=== PATIENT | male | born 1985 | race Two or more races ===

== ENCOUNTER 2021-03-18 10:26 | Outpatient (REF) | payer OTHER, SELFPAY ==
[2021-03-18 11:32] LABS: MANUAL DIFF FLAG NO
[2021-03-18 11:52] LABS: Basophils Absolute Auto 0.1 X10*3/uL (0.0-0.2); Basophils Percent Auto 0.8 % (0-2); Eosinophils Absolute Auto 0.1 X10*3/uL (0.0-0.4); Eosinophils Percent Auto 1.1 % (0-4); Hematocrit 46.5 % (42-52); Hemoglobin 15.8 g/dl (14.0-18.0); Imm Gran Abs Auto 0.06 X10*3/uL (0.00-0.03); Imm Gran Pct Auto 0.6 % (0.0-0.4); Lymphocytes Percent Auto 32.3 % (20-40); Mean Corpuscular Hemoglobin 29.2 pg (27.0-33.0); Mean Platelet Volume 9.9 fL (9.4-12.4); Monocytes Percent Auto 10.5 % (2-11); Neutrophils Absolute Auto 5.1 X10*3/uL (2.0-8.3); Neutrophils Percent Auto 54.7 % (45-73); Platelet Count 467 X10*3/uL (160-400); Red Blood Count 5.41 X10*6/uL (4.60-5.80); Red Cell Distribution Width 13.1 % (11.0-16.0); White Blood Count 9.3 X10*3/uL (4.8-10.8)
[2021-03-18 12:15] LABS: Alanine Aminotransferase 39 U/L (0-40); Albumin Level 4.3 g/dL (3.5-5.0); Alkaline Phosphatase 92 U/L (39-117); Anion Gap 14 (12-20); Aspartate Amino Transferase 24 U/L (5-37); Bilirubin Total 0.3 mg/dL (0.0-1.0); Blood Urea Nitrogen 11 mg/dL (9-16); Calcium 9.1 mg/dL (8.4-10.2); Carbon Dioxide 24 mmol/L (22-29); Chloride 107 mmol/L (96-108); Cholesterol 167 mg/dL; Estimated Glomerular Filt Rate > 60; Glucose Fasting 90 mg/dL (60-99); HDL Cholesterol 35 mg/dL; LDL Cholesterol Calculated 105 mg/dl; Potassium 4.6 mmol/L (3.3-5.1); Sodium 140 mmol/L (135-145); Triglycerides 136 mg/dL
[2021-03-18 12:37] LABS: TSH reflex Free T4 0.31 uIU/mL (0.32-4.0)
[2021-03-18 13:10] LABS: Free T4 (Free Thyroxine) 1.07 ng/dL (0.71-1.85)
[2021-03-20 07:27] LABS: SARS COV2 IgG Negative (Negative)
== END 2021-03-18 10:27 | disposition home or self-care (01) ==
LOC: HO.HMGCLDS 10:26
PROVIDERS: PCP Internal Medicine; Visit Provider Internal Medicine
DX: Z00.00 Encounter for general adult medical examination without abnormal findings (principal); Z20.822 Contact with and (suspected) exposure to COVID-19; R51.9 Headache, unspecified; Z82.49 Family history of ischemic heart disease and other diseases of the circulatory system; Z84.89 Family history of other specified conditions; Z87.898 Personal history of other specified conditions
CPT/HCPCS: 36415; 80053; 80061; 84439; 84443; 85025; 86769

== ENCOUNTER 2021-04-08 09:03 | Outpatient (REF) | payer OTHER, SELFPAY ==
--- NOTE | ~2021-04-08 | CT_ITS ---
EXAMINATION: CT HEAD WITHOUT CONTRAST CLINICAL INFORMATION: Syncope. Family history of brain tumor. COMPARISON: None TECHNIQUE: Contiguous axial imaging was performed from the skull base to vertex without intravenous administration of contrast. This CT examination was performed using dose optimization techniques as appropriate, variously including the following: *Automated exposure control *Adjustment of mA and/or kV according to patient size (this includes techniques or standardized protocols for targeted exams where dose is matched to indication/reason for exam; i.e. extremities or head) *Use of iterative reconstruction technique DLP: 682 mGy-cm FINDINGS: There is no evidence of acute intracranial hemorrhage or territorial infarction. No abnormal mass effect or midline shift is seen. [id number] matter differentiation is well preserved. No extra-axial fluid collections are identified. The ventricles are normal in size. There is no abnormal attenuation within the brain parenchyma. The osseous structures and soft tissues are normal. The mastoid air cells and visualized portions of the paranasal sinuses are well aerated. CT/CT head/brain wo con IMPRESSION: No acute intracranial process seen.
== END 2021-04-08 09:04 | disposition home or self-care (01) ==
LOC: HO.CT 09:03
PROVIDERS: Visit Provider Internal Medicine
DX: R51.9 Headache, unspecified (principal); Z84.89 Family history of other specified conditions; Z87.898 Personal history of other specified conditions
CPT/HCPCS: 70450

== ENCOUNTER → 2021-04-20 08:36 | Outpatient (BNVA) | payer OTHER, SELFPAY | PROVIDERS: PCP Internal Medicine; Referring Provider Internal Medicine; Visit Provider Internal Medicine | DX: R07.2 Precordial pain (principal); Z82.49 Family history of ischemic heart disease and other diseases of the circulatory system | CPT/HCPCS: 99202 ==

== ENCOUNTER → 2021-05-18 10:03 | Outpatient (BNVA) | payer OTHER, SELFPAY | PROVIDERS: PCP Internal Medicine; Referring Provider Internal Medicine; Visit Provider Surgery | DX: R22.42 Localized swelling, mass and lump, left lower limb (principal) | CPT/HCPCS: 99202 ==

== ENCOUNTER → 2021-05-27 09:32 | Outpatient (REF) | payer OTHER, SELFPAY ==
--- NOTE | 2021-05-27 09:35 | CA_ITS ---
Transthoracic Echocardiogram Patient (Last, First, Middle): Chiki Black David Gender: Male Date of : 1985 Age: 35 Procedure Date: 05/27/2021 Procedure Type: Transthoracic Echocardiogram Location: OP Height: 177.8 cm Weight: 97.52 kg BSA: 2.15 m2 Heart Rate: bpm BP: 110 / 75 mmHg Meat Counter Worker: JEFFERY Referring MD: Armando Camargo MD Symptoms: R07.2 - Precordial pain Conclusions: - Normal left ventricular size, thickness, systolic function, and wall motion. - Normal right ventricular cavity size and systolic function. - No valvular or pericardial pathology. Findings Left Ventricle Normal left ventricular size, thickness, systolic function, and wall motion. The visually estimated ejection fraction is between 55-60%. Diastolic function is normal for age. Right Ventricle Normal right ventricular cavity size and systolic function. Atria Both atria are normal in size. Aortic Valve Normal aortic valve structure and function. There is no aortic valve stenosis. There is no aortic valve regurgitation. Mitral Valve Normal mitral valve structure and function. There is no mitral valve regurgitation. There is no mitral valve stenosis. Pulmonic Valve Normal pulmonic valve structure and function. There is trace pulmonic valve regurgitation. Tricuspid Valve Normal tricuspid valve structure and function. There is trace tricuspid valve regurgitation. Normal right atrial pressure. There is no evidence of pulmonary hypertension. Great Vessels All visible segments of the aorta are normal in size. The visualized portions of the pulmonary artery and branches are normal. Venous The inferior vena cava is normal in size and collapses greater than 50% with inspiration. Pericardium/Pleural There is no evidence of pericardial effusion. Prior Study Comparison No prior study available for comparison. Measurements 2D Linear Measurements IVSd: 0.72 0.6-0.9/0.6-1.0 cm LVIDd: 5.20 3.9-5.3/4.2-5.9 cm LVIDd Index: 2.42 2.4-3.2/2.2-3.1 cm/m2 LVIDs: 3.48 2.0-3.6 cm LVPWd: 0.85 0.7-1.1 cm Ao Root: 2.90 2.1-3.5 cm LA Diam: 3.40 2.7-3.8/3.0-4.0 cm LAIDs Index: 1.58 1.5-2.3 cm/m2 LV Mass: 176.47 67-162/88-224 g LV Mass Index: 82.08 43-95/49-115 g/m2 LVOT Diam: 2.20 3.0+(-)1.3 cm 2D Systolic Function EF 4C: 67.80 >55% EF 2C: 56.00 >55% EF BiP: 61.60 >55% Mitral Valve MV Pk E: 0.69 MV PK A: 0.49 MV Decel Time: 126.00 E/A: 1.40 E'Lateral: 10.40 E'Medial: 9.79 E/E' Med: 7.00 E/E' Lat: 6.60 PHT: 37.00 MVA PHT: 5.95 Decel [place]: 5.46 Aortic Valve AoV Pk Eduardo: 1.30 AoV Pk Grad: 7.00 LVOT LVOT Pk Eduardo: 0.99 LVOT Mn Eduardo: 0.58 LVOT VTI: 0.19 LVOT Pk Grad: 4.00 LVOT Mn Grad: 2.00 LVOT Diam: 2.20 LVOT Area: 3.80 Diastolic Function MV Pk E: 0.69 MV Pk A: 0.49 E/A: 1.40 E'Medial: 9.79 E/E' Med: 7.00 E' Laterial: 10.40 E/E' Lat: 6.60 Right Ventricle TAPSE (mm): 2.13 Tricuspid Valve TR Pk Eduardo: 2.19 TR Pk Grad: 19.00 RA Press: 3.00 RVSP: 22.00 Great Vessels Aorta Ao Root-2D: 2.90 2.0-3.7 cm Ao Asc: 2.60 2.1-3.4 cm Updated in Other Vendor System with Status of Final Paras Vasquez MD electronically signed on 05/29/2021 11:34:56 PM with status of Final
== END ==
LOC: HO.CARD 09:32
PROVIDERS: PCP Internal Medicine; Visit Provider Internal Medicine
DX: R07.2 Precordial pain (principal)
CPT/HCPCS: 93306

== ENCOUNTER → 2021-06-01 08:33 | Outpatient (BNVA) | payer OTHER, SELFPAY | PROVIDERS: PCP Internal Medicine; Referring Provider Internal Medicine; Visit Provider Internal Medicine | DX: Z01.810 Encounter for preprocedural cardiovascular examination (principal); R07.2 Precordial pain; Z82.49 Family history of ischemic heart disease and other diseases of the circulatory system | CPT/HCPCS: 99212 ==

== ENCOUNTER 2021-06-03 08:12 | Day surgery (SDC) | payer OTHER, SELFPAY ==
[2021-05-26 14:45] VITALS: BMI 30.3
--- NOTE | 2021-05-31 09:01 | HO.ANESPROP2 ---
Documented by User: Lillie Stevens 05/31/21 09:05 HPI - Anesthesia Eval Consult details Narrative: 35yo M for Left Excision of Multiple Subcutaneous Thigh Nodules Had recent cardiac w/u d/t strong family hx of early heart disease. EKG, Echo, and CT calcium scoring negative. Pt has f/u and preop clearance cardiac visit 06/01/21 [facility] Active Problems Active Problems: All Active Problems (Updated 05/26/21 @ 14:44 by Vera Mcknight) Precordial chest pain (Acute) Subcutaneous nodules (Acute) Nodular lesion on surface of skin (Acute) Intermittent left-sided chest pain (Acute) Hx of syncope (Acute) Family history of brain tumor (Acute) Headache (Acute) Family history of early CAD (Acute) Past Medical History Medical History (Updated 06/01/21 @ 08:54 by Armando Camargo MD) Family history of brain tumor Family history of early CAD Headache Hx of syncope Intermittent left-sided chest pain Subcutaneous nodules Family History Family History Father History of brain tumor Hx of heart disorder Brother No problems noted. Brother History of brain tumor Surgical History Surgical History No pertinent past surgical history Social History Social History Alcohol intake: current Alcohol intake frequency: holidays/special occasions only Patient Tobacco Use Status: Never used Tobacco Use of substances other than those prescribed or required for medical reasons: Yes Substance Use Type: Marijuana Substance Use Frequency: Occasionally Have you been hit, kicked, punched, or otherwise hurt by someone within the past year? If so, by whom?: No Are you DNR?: No Advance Directives: No Advance Directives Information Provided: No Advance Directives on File: No Recently lost weight without trying: No Eating poorly because of decreased appetite: No Poor oral hygiene: No Meds Allergies Allergy/AdvReac Type Severity Reaction Status Date / Time No Known Allergies Allergy Verified 06/01/21 08:41 Home Medications Medication Instructions Recorded Confirmed Last Taken Type No Known Home Meds 03/18/21 06/01/21 Unknown History Exam Exam Date and Time: May 31, 2021 0901 Height,Weight and Vital Signs: Height 5 ft 10 in Weight 96 kg Pertinent Lab Results Pertinent Lab Results: Laboratory Tests 03/18/21 03/18/21 10:34 10:34 WBC 9.3 Hgb 15.8 Hct 46.5 Plt Count 467 H Sodium 140 Potassium 4.6 Chloride 107 Carbon Dioxide 24 BUN 11 Creatinine 0.85 Narrative Narrative: EKG 03/22/2021 Sinus bradycardia, 58/min; inverted T-waves in leads 3 and AVF which seem nonspecific but otherwise normal CA/ QTc. ECHO 05/2021 Conclusions: - Normal left ventricular size, thickness, systolic function, and wall motion. ? - Normal right ventricular cavity size and systolic function.? ? - No valvular or pericardial pathology.? ?? Assessment and Plan Assessment Anesthesia Assessment: Chart Reviewed Documented by User: Lizett Segura 06/03/21 08:31 [facility] Past Medical History Medical History (Updated 06/01/21 @ 08:54 by Armando Camargo MD) Family history of brain tumor Family history of early CAD Headache Hx of syncope Intermittent left-sided chest pain Subcutaneous nodules Family History Family History Father History of brain tumor Hx of heart disorder Brother No problems noted. Brother History of brain tumor Surgical History Surgical History No pertinent past surgical history Social History Social History Alcohol intake: current Alcohol intake frequency: holidays/special occasions only Patient Tobacco Use Status: Never used Tobacco Use of substances other than those prescribed or required for medical reasons: Yes Substance Use Type: Marijuana Substance Use Frequency: Occasionally Have you been hit, kicked, punched, or otherwise hurt by someone within the past year? If so, by whom?: No Are you DNR?: No Advance Directives: No Advance Directives Information Provided: No Advance Directives on File: No Recently lost weight without trying: No Eating poorly because of decreased appetite: No Poor oral hygiene: No Meds Allergies Allergy/AdvReac Type Severity Reaction Status Date / Time No Known Allergies Allergy Verified 06/01/21 08:41 Home Medications Medication Instructions Recorded Confirmed Last Taken Type No Known Home Meds 03/18/21 06/01/21 Unknown History Exam Airway Mallampati Class: II TM Dist: >3cm Neck ROM: Full
[2021-06-03] VITALS (9 sets, daily range): BP systolic 96–134; BP diastolic 65–89; PULSE 50–70; RESP 14–20; TEMP 36.3–36.5; O2SAT 96–98
[2021-06-03] MEDS: Lactated Ringers 1,000 ML 100 ML IVCONT (08:55)
--- NOTE | 2021-06-03 09:30 | MHC.SHP ---
Pre-Procedural Eval Section A Date of Service: 06/03/21 Section B Chief Complaint: Subcutaneous nodules Allergies: Allergies Allergy/AdvReac Type Severity Reaction Status Date / Time No Known Allergies Allergy Verified 06/01/21 08:41 Plan I have reviewed the history and physical and performed a pertinent physical examination on my patient. No changes have occurred unless specified.
--- NOTE | 2021-06-03 10:21 | P.OP_ITS ---
Operative Note Operative Note Date of Service: 06/03/21 Narrative: Preop diagnosis: Multiple lipomas on the left thigh, x4 Postop diagnosis: Multiple lipomas on the left thigh, x4 Procedure: Excision of lipomas x4 on the left thigh Surgeon: Carlos Linda MD dietary assistant: OMKAR Umanzor The patient is a 55-year-old male with lipomas on the left thigh x4. He wanted this removed. He understood the technique of excision which she wanted done under some anesthesia. He was aware of the risks, benefits, and alternatives. He was brought to the operating room. He was placed in decubitus position in preparation for excision of 1 lipoma on the posterior thigh. This area was prepped and draped. Surgical time-out was done. Lidocaine 1% was used for local anesthesia. I made an incision on the skin overlying this lipoma on the posterior thigh using blade 15. This was carried down through the full-thickness skin and subcutaneous fat anterior lipoma was visualized. I sharply dissected the lipoma off the rest of the subcutaneous layer until this was delivered and sent as specimen. This lipoma measured about 4.5 by 2.2 cm. The incision was closed with full-thickness nylon 3-0 interrupted sutures. The area was infiltrated with Marcaine 0.5% for postop analgesia. Dressings were applied. The patient was then turned supine. There were 3 lipomas on the anterior thigh and medial thigh. This area was prepped and draped. Lidocaine 1% was used for local anesthesia. I made an incision in the skin overlying the lipoma on the medial thigh using blade 15. And this was carried down through the full- thickness skin and subcutaneous fat until I visualized these lipoma. I sharply dissected the lipoma off of the rest of the subcutaneous layer until this was delivered and sent as specimen. This lipomas about 3 cm in diameter. This incision was closed with full-thickness nylon 3-0 interrupted sutures. Dressings were applied There were 2 lipomas on the anterior thigh both about 2.5 cm in size. After infiltration of the skin, the incisions were made using blade 15. I sharply dissected lipoma off of the surrounding subcutaneous layer and these were both delivered and sent as specimen. I closed these 2 remaining incisions with nylon 3-0 interrupted sutures. Dressings were applied All incisions were infiltrated with Marcaine 0.5% for postop analgesia. The procedure was then completed. The patient tolerated the procedure well. There were no complication noted. Initial and final counts of sponges and instruments were correct. Estimated blood loss was minimal. Tthe patient was then transferred to the recovery room with stable vital signs.
--- NOTE | 2021-06-03 10:26 | PM.OP ---
Brief Operative Note Date of Service: 06/03/21 Pre-op diagnosis: Lipomas x4, left thigh Post-op diagnosis: same Procedure: excision lipomas times for left thigh Surgeon: Carlos Linda MD Anesthesia: GLMA Was an Hand Coremaker used for this Procedure?: Yes Hand Coremaker: Josy Umanzor Estimated blood loss (mL): 3 Pathology: other ( lipomas) Condition: stable Disposition: PACU
[2021-06-03] MEDS: fentaNYL citrate/PF 100 MCG/2 ML VIAL 50 MCG IVPUSH ×2 (10:56→11:37)
[2021-06-03] MEDS: oxyCODONE HCl Immed Release 5 MG TABLET PO ×2 (10:57→11:50)
[2021-06-03] MEDS: Ketorolac Tromethamine 30 MG/ML VIAL IVPUSH (11:52)
== END 2021-06-03 12:58 | disposition home or self-care (01) ==
PROVIDERS: PCP Internal Medicine; Visit Provider Surgery
PROC: (CPT 27337; principal; 2021-06-03 11:00)
DX: D17.24 Benign lipomatous neoplasm of skin and subcutaneous tissue of left leg (principal); R07.2 Precordial pain; Z82.49 Family history of ischemic heart disease and other diseases of the circulatory system; F12.90 Cannabis use, unspecified, uncomplicated
CPT/HCPCS: 27337 ×2; 27327 ×2; 88304; J0690; J1885; J2250; J3010

== ENCOUNTER → 2021-06-16 11:17 | Outpatient (BNVA) | payer OTHER, SELFPAY | PROVIDERS: PCP Internal Medicine; Visit Provider Surgery | DX: R22.41 Localized swelling, mass and lump, right lower limb (principal) | CPT/HCPCS: 99212 ==

== ENCOUNTER 2021-09-02 09:58 | Day surgery (SDC) | payer OTHER, SELFPAY ==
--- NOTE | 2021-09-02 10:12 | P.CONAN_ITS ---
[facility] Active Problems Active Problems: All Active Problems (Updated 06/01/21 @ 08:54 by Armando bernal MD) Nodular lesion on surface of skin (Acute) Precordial chest pain (Acute) Preoperative cardiovascular examination (Acute) Subcutaneous nodules (Acute) Intermittent left-sided chest pain (Acute) Hx of syncope (Acute) Family history of brain tumor (Acute) Headache (Acute) Family history of early CAD (Acute) Past Medical History Medical History Family history of brain tumor Family history of early CAD Headache Hx of syncope Intermittent left-sided chest pain Subcutaneous nodules Family History Family History Father History of brain tumor Hx of heart disorder Brother No problems noted. Brother History of brain tumor Family history of problems with anesthesia: No Surgical History Surgical History History of surgery History of Problems with Anesthesia: No Social History Social History Alcohol intake: current Alcohol intake frequency: holidays/special occasions only Patient Tobacco Use Status: Never used Tobacco Substance Use Type: Marijuana Advance Directives: No Advance Directives Information Provided: Yes Meds Allergies Allergy/AdvReac Type Severity Reaction Status Date / Time No Known Allergies Allergy Verified 09/02/21 10:01 Exam Exam Date and Time: September 02, 2021 1012 Airway Mallampati Class: II TM Dist: >3cm Neck ROM: Full Heart: rrr Lungs: cta Assessment and Plan Assessment Anesthesia Assessment: Anesthesia Plan Discussed and Chart Reviewed Final Anesthetic Review Family History of Problems with Anesthesia: No History of Problems with Anesthesia: No NPO: Yes ASA Class: II Final Preanesthetic Review: No Changes in Pt Med Stat, Meds/Allgs Chart Reviewed and Consent Obtained/Reviewed Patient Risk: Intermediate Procedure Risk: Intermediate Anesthetic Plan Anesthetic Plan: MAC: Disposition: Standard PACU
[2021-09-02 10:17] VITALS: BP 141/88; PULSE 75; RESP 20; TEMP 36.2; O2SAT 97; BMI 30.1
--- NOTE | 2021-09-02 10:31 | MHC.SHP ---
Pre-Procedural Eval Section A Date of Service: 09/02/21 Section B Chief Complaint: Nodular lesion on surface of skin Allergies: Allergies Allergy/AdvReac Type Severity Reaction Status Date / Time No Known Allergies Allergy Verified 09/02/21 10:01 Plan I have reviewed the history and physical and performed a pertinent physical examination on my patient. No changes have occurred unless specified.
[2021-09-02] MEDS: Lactated Ringers 1,000 ML 50 ML IVCONT (10:36)
--- NOTE | 2021-09-02 11:32 | W.PM.OPN ---
Operative Note Operative Note Date of Service: 09/02/21 Narrative: Preop diagnosis: Multiple lipomas, x6, right thigh Postop diagnosis: The same Procedure: Excision of multiple lipomas, x6 from the right thigh Surgeon: Carlos Linda MD clinical lab assistant: OMKAR Umanzor Patient is a 36-year-old male with multiple lipomas on the right thigh. This varied in size is from at least 3 cm to about 2 cm. He understood the technique of excision with monitored anesthesia care. He was aware of the risks, benefits, and alternatives He was brought to the operating room and placed supine the table under monitored anesthesia care. The right thigh was prepped and draped usual sterile fashion. There was 6 lipomas that were marked earlier. Five of the lipomas were on the anterior aspect of the thigh. One was a little posterior and lateral. We started therefore with the more posterior lipoma. The area was infiltrated with lidocaine 1%. I made an incision on the skin overlying his by lipoma seeing blade 15. This was carried down to full-thickness skin and part of subcutaneous layer until the lipomas visualize. I sharply dissected the lipoma off of the rest of the subcutaneous layer with Metzenbaum scissors and this was delivered and sent as specimen. I closed this incision with multiple nylon 3-0 interrupted sutures. The skin overlying the 5 lipomas on the anterior thigh were infiltrated with lidocaine 1%. I made an incision on the skin overlying each of the lipoma sequentially using a blade 15. And this was carried down through the full-thickness skin subcutaneous fat. I dissected each lipoma off of the subcutaneous layer with Metzenbaum scissors to deliver this. This procedure was duplicated on all 5 lipomas anteriorly. Three of the lipomas removed measured about 3.3 cm by 3 cm in size. One lipoma was 2.5 cm x 2 cm in size and another lipomas about 1.5 x 1 cm in size. Another lipoma was about 2 cm x 2 cm in size. Again, as dictated, there were 6 lipoma that were removed. I closed all incisions with nylon 3-0 simple interrupted sutures Dressings were applied. The patient tolerated procedure well. There were no complication noted. Initial and final counts of sponges and instruments were correct. Estimated blood loss about less than 5 cc The patient was then transferred to the recovery room with stable vital signs.
[2021-09-02 11:45] VITALS: BP 112/73; PULSE 78; RESP 16; TEMP 36.8; O2SAT 95
[2021-09-02 12:00] VITALS: BP 109/76; PULSE 78; RESP 16; O2SAT 96
[2021-09-02] MEDS: oxyCODONE HCl Immed Release 5 MG TABLET PO (12:07)
[2021-09-02 12:15] VITALS: BP 109/85; PULSE 60; RESP 16; TEMP 36.8; O2SAT 96
== END 2021-09-02 12:45 | disposition home or self-care (01) ==
PROVIDERS: PCP Internal Medicine; Visit Provider Surgery
PROC: (CPT 27337; principal; 2021-09-02 11:40)
DX: D17.23 Benign lipomatous neoplasm of skin and subcutaneous tissue of right leg (principal)
CPT/HCPCS: 27337 ×3; 27327 ×3; 88304; J0690; J1885; J2250; J3010

== ENCOUNTER → 2021-09-14 15:49 | Outpatient (BNVA) | payer OTHER, SELFPAY | PROVIDERS: PCP Internal Medicine; Referring Provider Internal Medicine; Visit Provider Surgery | DX: Z48.817 Encounter for surgical aftercare following surgery on the skin and subcutaneous tissue (principal); Z87.2 Personal history of diseases of the skin and subcutaneous tissue | CPT/HCPCS: 99212 ==

== ENCOUNTER → 2022-05-03 13:31 | Outpatient (BNVA) | payer OTHER, SELFPAY | PROVIDERS: PCP Internal Medicine; Visit Provider Surgery | DX: R22.33 Localized swelling, mass and lump, upper limb, bilateral (principal); R22.2 Localized swelling, mass and lump, trunk | CPT/HCPCS: 99212 ==

== ENCOUNTER 2022-05-25 12:15 | Outpatient (REF) | payer OTHER, SELFPAY ==
[2022-05-25 12:22] VITALS: BMI 29.5
[2022-05-25 12:24] VITALS: BP 117/74; PULSE 77; RESP 16; TEMP 37.1; O2SAT 96
== END 2022-05-25 12:16 | disposition home or self-care (01) ==
LOC: HO.MS 12:15
PROVIDERS: PCP Internal Medicine; Visit Provider Surgery
DX: R22.9 Localized swelling, mass and lump, unspecified (principal); Z53.8 Procedure and treatment not carried out for other reasons

== ENCOUNTER 2022-06-28 12:29 | Outpatient (REF) | payer OTHER, SELFPAY ==
[2022-06-28 12:46] VITALS: BP 147/84; PULSE 74; RESP 18; TEMP 36.6; O2SAT 97; BMI 29.4
--- NOTE | 2022-06-28 13:34 | P.OP_ITS ---
Operative Note Operative Note Date of Service: 06/28/22 Narrative: Preop diagnosis: Lipomas, right anterior thigh, right forearm x2, question of Ganglion cyst left wrist Postop diagnosis: 1.Lipoma right anterior thigh, about 3 cm in diameter 2. lipoma, x2, right forearm, 2cm and 1 cm in diameter 3. no ganglion cyst seen on the left wrisP Procedure: Excision of lipoma, right anterior thigh, excision of lipomas x2 right forearm, exploration of left wrist surgeon: Carlos Linda MD The patient is a 37-year-old male with lipomatous masses on the right anterior thigh, right forearm question of a small ganglion cyst on the left wrist. He wanted all of these removed. He understood the technique of excision under local anesthesia. He was aware of the risks, benefits, and alternatives. He was brought to the minor procedure room. He was placed supine. A surgical time-out was done.The area of the lipoma on the right foot anterior thigh was prepped and draped. Lidocaine 1% was used for local anesthesia. I made an incision on the skin overlying the lipoma using blade 15. And this carried down through the full-thickness of the skin subcutaneous fat until a lipomas visualize. I sharply dissected the lipoma off of the rest of the subcutaneous layer with Metzenbaum scissors until this was delivered and sent as a specimen. This lipoma was about 3 cm in diameter. I closed the incision with full- thickness nylon 3-0 interrupted sutures. Dressings were applied . The area of the lipomatous masses on the anterior right forearm was prepped and draped. There were 2 lipomatous masses seen. Infiltrated these 2 areas lidocaine 1%. I made a short incision on the skin overlying the distal lipoma using blade 15. And this carried down through the full-thickness of the skin subcutaneous fat until the lipomas visualize. I sharply dissected the lipoma off the rest of the subcutaneous layer this was delivered and sent as specimen. This was about 2 cm in diameter. I closed this incision with nylon 3-0 inte rrupted sutures. The other area of the lipoma on the same forearm was also infiltrated with lidocaine 1%. I made the incision using blade 15 and carried this down through the full-thickness of the skin and subcutaneous fat to excise the entire lipoma. This was sent as specimen. This was 1 cm in diameter. I closed this incision with full-thickness nylon 3-0 interrupted sutures. Dressings were applied I then proceeded to examine the left wrist. He had without there was a small mass on this area and this appeared to be a small ganglion cyst in the office. I palpated this and I could not clearly define any ganglion cyst at this point. However he pointed out a little bit of a tree protuberant which she says that where the ganglion cyst was before and he wanted to proceed with excision as this had been bothering him in the past. I therefore infiltrated this area with lidocaine 1% after prepping and draping. I made the incision using blade 15. And this was carried down through the full-thickness skin subcutaneous fat. I then proceeded to explore this area which gentle dissection using a fine hemostat. I could see the radial nerve as well as the vein. Examined the area and explore this with gentle dissection and I could not see any mass or any cyst. After doing this for a few minutes I told him that it may be best to not proceed in view of the risks of further injury. I reviewed the area. I closed the incision with full-thickness nylon 3-0 interrupted sutures. Dressings were applied. I told him that if does notice any recurrence, we can always bring him back for excision He tolerated the procedure well. There were no immediate complications. He was given wound care instructions.
== END 2022-06-28 12:30 | disposition home or self-care (01) ==
LOC: HO.MS 12:29
PROVIDERS: PCP Internal Medicine; Visit Provider Surgery
PROC: (CPT 27337; principal; 2022-06-28 13:00)
DX: D17.23 Benign lipomatous neoplasm of skin and subcutaneous tissue of right leg (principal); D17.21 Benign lipomatous neoplasm of skin and subcutaneous tissue of right arm; R22.32 Localized swelling, mass and lump, left upper limb
CPT/HCPCS: 27337; 25075 ×2; 17999; 88304

== ENCOUNTER 2024-07-17 12:43 | Outpatient (AMB) | payer OTHER, SELFPAY ==
--- NOTE | 2024-07-17 12:45 | MHC.PC.OV ---
Vital Signs 07/17/24 12:46 Height 5 ft 10 in Weight 219 lb BMI 31.4 BP 130/72 Blood Pressure Location Lt brachial Position Sitting Pulse 82 Pulse Source Pulse Oximeter Pulse Oximetry (%) 96 Oxygen Delivery Method Room Air Intake Visit Reasons: PE Intake Note: Pt is here today for his PE Allergies No Known Allergies Allergy (Verified 07/17/24 13:04) Medication List - Last Reconciled 07/17/24 by Gracie Eugene MD No Known Home Meds Tobacco use date assessed: 07/17/24 Dental Screening Dental Screen Date: 07/17/24 Did you have a dental visit in the last 12 months?: Yes Did you have a dental problem in the last 6 months where you did not have access to dental care?: No Was dental information given to patient?: Patient has dentist HPI PE HPI Details 39-year-old male here today for physical exam. Complains of mildly itchy rash on buttocks . Has been feeling well with no complaints at present time. [facility], LAT[facility] Medical History (Updated 07/17/24 @ 13:28 by Gracie Eugene MD) Folliculitis Subcutaneous nodules Intermittent left-sided chest pain Hx of syncope Family history of brain tumor Headache Family history of early CAD Surgical History Hx of excision of mass Status post excision of lipoma (~09/02/21) History of surgery Family History Father History of brain tumor Hx of heart disorder Brother No problems noted. Brother History of brain tumor Social History Housing: Apartment Alcohol intake: current Alcohol intake frequency: holidays/special occasions only Patient Tobacco Use Status: Never used Tobacco e-Cigarette/Vaping Use: Never Used Substance Use Type: Marijuana service: No Current occupational status: unemployed Cognitive needs: No Hearing needs: No Vision needs: Yes Questionnaire PHQ-9 Over the last 2 weeks, how often have you been bothered by any of the following problems? 1. Little interest or pleasure in doing things: not at all 2. Feeling down, depressed, or hopeless: not at all 3. Trouble falling or staying asleep, or sleeping too much: not at all 4. Feeling tired or having little energy: not at all 5. Poor appetite or overeating: not at all 6. Feeling bad about yourself - or that you are a failure or have let yourself or your family down: not at all 7. Trouble concentrating on things, such as reading the newspaper or watching television: not at all 8. Moving or speaking so slowly that other people could have noticed. Or the opposite - being so fidgety or restless that you have been moving around a lot more than usual: not at all 9. Thoughts that you would be better off or of hurting yourself in some way: not at all Total score: 0 Depression Screening Interpretation: Negative Depression Screening Done: Yes 52609 - PHQ-9 Billing: Yes Source: Developed by Drs. Rashaun Leiva, Prachi Lockwood, Torsten Putnam and colleagues, with an educational shelby from [employer]. AUDIT C Alcohol Use Questionnaire (AUDIT-C) 1. How often do you have a drink containing alcohol?: Monthly or less Total Score: 1 MEHDI-7 AMB Questionnaire MEHDI-7 Date MEHDI - 7 assessed: 07/17/24 Feeling nervous, anxious, or on edge: 0 = Not at all Not being able to stop or control worryin = Not at all Worrying too much about different things: 0 = Not at all Trouble relaxin = Not at all Being so restless that it is hard to sit still: 0 = Not at all Becoming easily annoyed or irritable: 0 = Not at all Feeling afraid as if something awful might happen: 0 = Not at all Total MEHDI-7 score (0-4 normal; 5-9 mild; 10-14 moderate; 15-21 severe): 0 Source: Developed by Drs. Rashaun Leiva, Prachi Lockwood, Torsten Putnam and colleagues, with an educational shelby from [employer]. MEHDI-7 Assessment Billing MEHDI-7 Assessment Tool: MEHDI-7 Assessment 11836 Review of Systems Const Denies chills, Reports fatigue and Denies fever(s) Eyes Details: Seen by [facility] 2021, wears corrective lenses ENT Reports no additional complaints Card Denies chest pain, Denies dyspnea and Denies dyspnea on exertion Resp Denies cough, Denies dyspnea and Denies dyspnea on exertion GI Denies hematochezia and Denies change in bowel habits Denies hematuria and Denies difficulty urinating Musc Denies back pain and Denies limited range of motion Skin/Breast Reports as per HPI Neuro Denies focal weakness and Denies convulsions Psych Denies depression and Denies mood swings Endo Reports no additional complaints and Reports fatigue Diego/Lymph Reports no additional complaints Aller/Immun Reports no additional complaints Physical exam (Primary Care) Vital Signs: Last Vital Signs Pulse 82 07/17/24 12:46 BP 130/72 07/17/24 12:46 Pulse Ox 96 07/17/24 12:46 Oxygen Delivery Method Room Air 07/17/24 12:46 BMI result Body Mass Index 31.4 Tobacco/Smoking Status: Tobacco use Status Tobacco use date assessed 07/17/24 07/17/24 12:49 Patient Tobacco Use Status Never used Tobacco 07/17/24 12:49 e-Cigarette/Vaping Use Never Used 07/17/24 12:49 PHQ-9: PHQ-9 Score PHQ-9: Total score 0 07/20/24 16:20 Depression Screening Interpretation: Negative Advance Care Planning discussion: Completed/Scanned Date of discussion: 07/17/24 Who was present: Patient Forms completed: Health Care Proxy Time spent: 16-45 minutes Actual minutes spent: 16 Const General: no acute distress and alert Orientation/consciousness: patient oriented x3 HENMT Head: Yes normocephalic and Yes atraumatic Ears: external ears normal, TM's normal bilaterally and EAC's normal General nose exam: Normal external nose present and No nasal discharge present Face and sinus: Yes face symmetric Mouth: Normal oral and palatal mucosa present, lip normal, tongue normal, oropharynx normal and moist mucous membranes Eyes General: appearance normal, both eyes and all related structures Eyelids: Yes eyelids normal Conjunctivae: conjunctivae normal Sclerae: sclerae normal Pupils: Equal, round and reactive pupils present EOM: EOMs intact bilaterally Neck Neck: Yes full ROM, Yes no lymphadenopathy and Yes supple Thyroid: Thyroid normal Chest Chest palpation & inspection: normal inspection of the chest Resp Effort & Inspection: normal respiratory effort and able to speak in complete sentences Auscultation: clear to auscultation bilaterally Cardio Rate: regular rate Rhythm: regular rhythm Heart sounds: S1 normal heart sound present and S2 normal heart sound present GI Palpation (GI): Soft to palpation, nontender, no guarding and no masses Auscultation: normal bowel sounds General: Yes no CVA tenderness Male General Exam: No hernia Testes: no testicular mass Back/Spine/Pelvis Back: no CVA tenderness and No back tenderness Skin Other: Scattered papular lesions on lower back and buttock area Neuro General: patient oriented x3, gait normal, moves all extremities, Normal light touch and pain sensation, no focal motor deficits and CN's II-XI intact bilaterally Cranial nerves: Yes Equal, round and reactive pupils present Cognition (Neuro): normal cognition Gait exam (Neuro): Normal gait present Motor exam (neuro): 5/5 motor strength present throughout Extrem General: Yes normal to inspection, Yes full ROM, Yes no joint enlargement, Yes no pedal edema and Yes normal gait Psych Appearance: grossly normal and well kempt Mental Status: mental status grossly normal Speech and movement: Normal speech and movement present Affect: normal affect Attitude: cooperative Thought process: Normal thought process present Thought content: Normal thought content present Assessment and Plan Assessment & Plan (1) Annual visit for general adult medical examination with abnormal findings: Code(s): Z00.01 - Encounter for general adult medical examination with abnormal findings Plan: Will check appropriate labs. Recommended dental visit every 6 months and regular eye exams, at least every 2 years. Instructed do self-testicular exam to check for any mass. Up-to-date with his Tdap but does not want to get any flu or COVID vaccine (2) Encounter for counseling regarding advance directives: Code(s): Z71.89 - Other specified counseling Plan: Initiated the conversation about Advanced Directives. Advanced Directives help patients prepare for current and future decisions about their medical treatment and place of care. Discussed with patient that it is a process where a patients current condition and prognosis are reviewed, their wishes for information regarding their illness are elicited, and likely medical dilemmas are presented and options discussed. Healthcare proxy form completed today. The form can be amended as needed, reviewed yearly and make changes as needed (3) Fatigue: Code(s): R53.83 - Other fatigue Plan: Ordered CBC, TSH with free T4, free and total testosterone, basic metabolic panel (4) Folliculitis: Code(s): L73.9 - Follicular disorder, unspecified Plan: Prescribed mupirocin ointment 2% to be apply as directed, may mixed this together with triamcinolone acetonide cream 0.1% to apply once a day as needed for itching. Keep areas clean and dry at all times prevent recurrence Orders: Orders Thyroid Stimulating Hormone 07/18/24 Z00.01 - Encounter for general adult medical examination with abnormal findings, Z71.89 - Other specified counseling Testosterone, Free/Total 07/18/24 R53.83 - Other fatigue Basic Metabolic Panel Fasting 07/18/24 Z00. - Encounter for general adult medical examination with abnormal findings, Z71.89 - Other specified counseling Lipid Panel 07/18/24 Z00. - Encounter for general adult medical examination with abnormal findings, Z71.89 - Other specified counseling Medications: New triamcinolone acetonide 0.1% 1 appl topical DAILY PRN 30 grams 0RF Pruritus mupirocin 2% 1 appl topical BID 50 grams 0RF Coding Level of Care Code Est Pt Prev Care 40-64y(49625) Diagnoses Annual visit for general adult medical examination with abnormal findings Z00. Encounter for counseling regarding advance directives Z71.89 Fatigue R53.83 Folliculitis L73.9 Additional Codes MEHDI-7 Assessment Billing - MEHDI-7 Assessment Tool: MEHDI-7 Assessment 03810 ([id number]) Vital Signs *Quality* - Advance Care Planning discussion: Completed/Scanned ([id number]) Vital Signs *Quality* - Time spent: 16-45 minutes ([id number])
[2024-07-17 12:46] VITALS: BP 130/72; PULSE 82; O2SAT 96; BMI 31.4
== END 2024-07-17 13:33 | disposition home or self-care (01) ==
PROVIDERS: PCP Internal Medicine; Visit Provider Internal Medicine
DX: Z00.01 Encounter for general adult medical examination with abnormal findings (principal); Z71.89 Other specified counseling; R53.83 Other fatigue; L73.9 Follicular disorder, unspecified; Z00.00 Encounter for general adult medical examination without abnormal findings

== ENCOUNTER → 2024-07-17 12:43 | Outpatient (BNVA) | payer OTHER, SELFPAY | PROVIDERS: PCP Internal Medicine; Visit Provider Internal Medicine | DX: Z00.01 Encounter for general adult medical examination with abnormal findings (principal); L73.9 Follicular disorder, unspecified; R53.83 Other fatigue; Z71.89 Other specified counseling | CPT/HCPCS: 96127; 99396; 99497 ==

== ENCOUNTER 2024-07-18 09:03 | Outpatient (REF) | payer OTHER, SELFPAY ==
[2024-07-18 10:30] LABS: Anion Gap 9 (12-20); Blood Urea Nitrogen 12 mg/dL (9-16); Calcium 9.3 mg/dL (8.4-10.2); Carbon Dioxide 29 mmol/L (22-29); Chloride 108 mmol/L (96-108); Cholesterol 185 mg/dL (<200); Estimated Glomerular Filt Rate > 60; Glucose Fasting 89 mg/dL (60-99); HDL Cholesterol 38 mg/dL (>40); LDL Cholesterol Calculated 113 mg/dL (<100); Sodium 142 mmol/L (135-145); Triglycerides 173 mg/dL (<150)
[2024-07-18 10:48] LABS: Thyroid Stimulating Hormone 0.81 uIU/mL (0.32-4.0)
[2024-07-23 21:13] LABS: Testosterone, Free 68.1 pg/mL (35.0-155.0); Testosterone, Total 423 ng/dL (250-1100)
== END 2024-07-18 09:04 | disposition home or self-care (01) ==
LOC: HO.HMGCLDS 09:03
PROVIDERS: PCP Internal Medicine; Visit Provider Internal Medicine
DX: Z00.01 Encounter for general adult medical examination with abnormal findings (principal); Z71.89 Other specified counseling; R53.83 Other fatigue
CPT/HCPCS: 36415; 80048; 80061; 84402; 84403; 84443